=== PATIENT | male | born 2000 | race Two or more races ===

== ENCOUNTER 2025-08-30 20:34 | Inpatient (IN) | payer SELFPAY ==
[~2025-08-30] VITALS: Ht 162.6 cm; Wt 59.6 kg
[2025-08-30 21:00] LABS: PLATELET COUNT (AUTO) 343 K/uL (150-450); RED BLOOD CELL COUNT(AUTO) 5.07 MIL/uL (4.50-5.90); RED CELL DISTRIBUTION WIDTH 16.8 % (11.5-14.5); WHITE BLOOD COUNT (AUTO) 7.7 K/uL (4.5-11.0)
[2025-08-30 21:10] LABS: CALCIUM, TOTAL 8.8 mg/dL (8.8-10.5); CREATININE 1.11 mg/dL (0.60-1.30); GLOMERULAR FILTR. RATE CALC > 60 mL/min (>60); GLUCOSE,RANDOM 97 mg/dL (70-110); SODIUM SERUM 141 mmol/L (136-145); UREA NITROGEN, BLOOD 10 mg/dL (7-18)
[2025-08-30 21:18] LABS: TROPONIN I-HIGH SENSITIVITY 4 ng/L (<76)
[2025-08-30] MEDS: LORazepam 2 MG/ML VIAL IVP ONE (21:48)
[2025-08-30] MEDS: SODIUM CHLORIDE 0.9% 1,000 ML IV ONE (21:49)
[2025-08-30 22:23] LABS: COVID AG,FIA SOURCE NASAL SWAB
[2025-08-30 22:41] LABS: SARS-COV2 (COVID) ANTIGEN,FIA Negative (Negative)
[2025-08-31] VITALS (11 sets, daily range): BP systolic 109–128; BP diastolic 68–83; PULSE 81–97; RESP 17–19; TEMP 97.5–99.1; O2SAT 96–99
[2025-08-31] MEDS ORDERED: ZOLPIDEM TARTRATE 10 MG TABLET PO PRN (00:15)
[2025-08-31] MEDS ORDERED: ONDANSETRON 4 MG TABLET PO PRN (06:30)
[2025-08-31] MEDS ORDERED: PETROLATUM,WHITE 28 GM JELLY TP PRN (06:30)
[2025-08-31] MEDS ORDERED: ALBUTEROL SULFATE HFA 90 MCG/PUFF 8 GM INHALER IH PRN (06:30)
[2025-08-31] MEDS ORDERED: MAGNESIUM HYDROXIDE SUSPENSION 30 ML UDCUP PO PRN (06:30)
[2025-08-31] MEDS ORDERED: NICOTINE 14 MG/24 HOUR PATCH TD PRN (06:30)
[2025-08-31] MEDS ORDERED: LOPERAMIDE HCL 2 MG CAPSULE PO PRN (06:30)
[2025-08-31] MEDS ORDERED: MAG HYDROX/ALUMINUM HYD/SIMETH ES 30 ML SUSPENSION UDCUP PO PRN (06:30)
[2025-08-31] MEDS ORDERED: ACETAMINOPHEN 325 MG TABLET PO PRN (06:30)
[2025-08-31] MEDS ORDERED: GuaiFENesin/D-METHORPHAN [SUGAR-FREE] 200-20MG/10 ML SYRUP UDCUP PO PRN (06:30)
[2025-08-31] MEDS ORDERED: DOCUSATE SODIUM 100 MG CAPSULE PO PRN (06:30)
[2025-08-31] MEDS ORDERED: IBUPROFEN 400 MG TABLET PO PRN (06:30)
[2025-08-31] MEDS: INFLUENZA VIRUS VACCINE TVS (6MO+) 2025-26/PF 45 MCG/0.5 ML SYRINGE IM. ONE (06:45)
[2025-08-31] MEDS: BACITRACIN 28 GM OINTMENT TP SCH (09:47)
[2025-08-31] MEDS: SERTRALINE HCL 50 MG TABLET PO SCH (13:12)
[2025-09-01] VITALS (7 sets, daily range): BP systolic 115–144; BP diastolic 61–93; PULSE 90–100; RESP 17–18; TEMP 97.3–98.9; O2SAT 97–99
[2025-09-01 09:07] LABS: PLATELET COUNT (AUTO) 306 K/uL (150-450); RED BLOOD CELL COUNT(AUTO) 5.09 MIL/uL (4.50-5.90); RED CELL DISTRIBUTION WIDTH 16.6 % (11.5-14.5); WHITE BLOOD COUNT (AUTO) 7.5 K/uL (4.5-11.0)
[2025-09-01 09:23] LABS: ASPARTATE AMINOTRANSFERASE 71 U/L (15-37); CALCIUM, TOTAL 9.2 mg/dL (8.8-10.5); CREATININE 0.86 mg/dL (0.60-1.30); GLOMERULAR FILTR. RATE CALC > 60 mL/min (>60); GLUCOSE,RANDOM 101 mg/dL (70-110); SODIUM SERUM 135 mmol/L (136-145); TOTAL PROTEIN, SERUM 8.1 g/dL (6.4-8.2); UREA NITROGEN, BLOOD 10 mg/dL (7-18)
[2025-09-01 09:46] LABS: CHOL/HDL RATIO 2.2 (4.2-7.3); LDL CHOL (CALC.) 94 mg/dL (0-130)
[2025-09-02 08:44] VITALS: BP 139/94; PULSE 100; RESP 17; TEMP 98.5; O2SAT 97
[2025-09-02 10:09] LABS: APPEARANCE,URINE CLEAR (CLEAR); GLUCOSE, URINE (UA) NEGATIVE (NEGATIVE); LEUKOCYTE ESTERASE ,URINE NEGATIVE (NEGATIVE); NITRATE,URINE NEGATIVE (NEGATIVE); OCCULT BLOOD,URINE NEGATIVE (NEGATIVE); PH,URINE DRUG SCREEN 8.0 (5.0-8.0); SPECIFIC GRAVITIY, URINE 1.011 (1.003-1.030)
[2025-09-02 10:32] VITALS: BP 139/94; PULSE 100; RESP 17; TEMP 98.5; O2SAT 97
[2025-09-02 12:03] LABS: ALCOHOL, URINE DRUG SCREEN NEGATIVE (NEGATIVE); AMPHET/METH SCREEN,URINE NEGATIVE (NEGATIVE); BARBITURATE SCREEN, URINE NEGATIVE (NEGATIVE); CANNABINOID SCREEN,URINE POSITIVE (NEGATIVE); COCAINE SCREEN,URINE NEGATIVE (NEGATIVE); METHADONE SCREEN, URINE NEGATIVE (NEGATIVE)
[2025-09-02] MEDS ORDERED: SERT-158 PO (12:57)
== END 2025-09-02 15:12 | disposition home or self-care (01) | DRG 885 ==
LOC: EMS 20:34 → B2S 08-31 01:09
PROVIDERS: ADMIT Psychiatry & Neurology Child & Adolescent Psychiatry; ATTEND Psychiatry & Neurology Child & Adolescent Psychiatry
PROC: GZ58ZZZ Individual Psychotherapy, Cognitive-Behavioral (ICD-10-PCS; 2025-08-31)
PROC: GZ56ZZZ Individual Psychotherapy, Supportive (ICD-10-PCS; 2025-08-31)
PROC: GZHZZZZ Group Psychotherapy (ICD-10-PCS; principal; 2025-09-02)
DX: F33.2 Major depressive disorder, recurrent severe without psychotic features (principal); R45.851 Suicidal ideations; I10 Essential (primary) hypertension; F41.9 Anxiety disorder, unspecified; Z20.822 Contact with and (suspected) exposure to COVID-19; F12.90 Cannabis use, unspecified, uncomplicated; F10.90 Alcohol use, unspecified, uncomplicated; Y90.8 Blood alcohol level of 240 mg/100 ml or more; Z79.899 Other long term (current) drug therapy
CPT/HCPCS: 80048; 80053; 80061; 80307; 81003; 83036; 84436; 84443; 84484; 85025; 93005; G0480; J2060; J7030